=== PATIENT | male | born 1975 | race Caucasian/White ===

== ENCOUNTER 2025-01-31 22:10 | Emergency (ER) | payer MEDICAID ==
[~2025-01-31] VITALS: Ht 160 cm; Wt 84.7 kg
[2025-02-01] MEDS ORDERED: SULF1TAB49 PO (02:41)
[2025-02-01] MEDS ORDERED: CEPH-585 PO (02:41)
--- NOTE | 2025-02-01 02:43 | Physician Documentation ---
History of Present Illness ~ Chief Complaint: Finger pain Stated Complaint: "FINGER NAIL PAIN" Time Seen by MD: 02:36 Primary Medical Doctor: NONE Source: patient Mode of Arrival: POV Exam Limitations: no limitations HPI Patient who reports having problems with his nails on his fingers for several years. Sometimes they are painful and they have a lot of bumps and Ridges on them. But over the past week or so some of them seem a little infected. His left ring finger has some pus coming out of the end of it it has been draining today. Mild tenderness. He states that he picks at his fingernails a lot. Tetanus within 5 years: No (UNK) Medication Reconciliation Allergies: Coded Allergies: acetaminophen (Verified Allergy, Mild, 01/31/25) hydromorphone (Verified Allergy, Unknown, Pt states he passed out, 01/31/25) ibuprofen (Verified Allergy, Unknown, 01/31/25) Scheduled Cephalexin*Monohydrate* (Keflex*), 1 CAP PO BID Sulfamethoxazole/Trimethoprim (Bactrim Ds Tablet), 1 TAB PO Q12H Past Medical History Past Medical History: No Pertinent History, Asthma, Cellulitis, Depression Past Surgical History: orthopedic surgeries Patient History: Patient reports no known family medical history. Alcohol Use: Rarely Drug Use: marijuana Lives with: Other Lives In: Home Occupation: unemployed Review of Systems All Other Systems at this time: Reviewed and Negative Physical Exam Vital Signs: Temperature: 97.8, Source: Temporal, Heart Rate: 89, Respiratory Rate: 18, BP: 137/88, Pulse Oximetry: 98, Weight: 84.700 Physical Exam General: Alert and oriented x4, well-appearing, well-nourished, no acute distress HEENT: Normocephalic, atraumatic, no visible or palpable masses or depression, extraocular movements intact, Heart: Regular rate Lungs: Clear , normal work of breathing Extremities: Full range of motion, no acute deformity, fingers: Multiple nail beds with Ridges and possible fungal infection, left ring finger nail bed with erythema around the nail and mild pus draining on the medial lateral side of the nailbed Musculoskeletal: Normal gait, normal tone Neurologic: Cranial nerves 2-12 are intact, Psychiatric: Alert and oriented x4, judgment and insight normal, normal mood and affect Skin: Good turgor, Progress Results/Orders Results/Orders Completed Orders - ESTHER SCHWARTZ MD Cephalexin Capsule (Keflex Capsule) (02/01/25 02:40) Sulfamethox/Trimetho. Ds Tab (Septra Ds (02/01/25 02:40) Medications Received in ER Medications (Trade) Dose Ordered Sig/Charli Route PRN Reason Start Time Stop Time Status Last Admin Dose Admin (Keflex capsule) 500 mg ONCE ONCE PO 02/01/25 02:40 02/01/25 02:41 DC 02/01/25 02:49 500 MG (Septra DS tab) 1 tab ONCE ONCE PO 02/01/25 02:40 02/01/25 02:41 DC 02/01/25 02:49 1 TAB Vital Signs 01/31/25 02/01/25 22:21 02:51 Temp 97.8 98.1 Pulse 89 85 Resp 18 16 B/P (MAP) 137/88 136/84 Pulse Ox 98 98 Departure Disposition: 01 HOME / SELF CARE / HOMELESS Impression: Primary Impression: Cellulitis of finger, left Additional Impression: Paronychia of finger Additional Impression Text Patient with a mild paronychia that is open and draining on the left index finger. Mild cellulitis versus fungal infection of other nails. Placing the patient on Bactrim and Keflex. Discharging in good condition to follow up with his PCP. Discussed after the or writing infection is cleared he may talk to his doctor about a possible fungal infection in the nail beds. He is to return here if new or worsening symptoms prior to follow-up. Condition: Stable Discharge Instructions: Paronychia Additional Instructions: You need to soak the left ring finger several times a day. Follow up with your PCP if not improving. Complete both 7 days of Bactrim and 7 days of Keflex. Return to the ER if new or worsening symptoms prior to follow-up. Referrals: NO PRIMARY CARE PROVIDER (PCP) Prescriptions Sulfamethoxazole/Trimethoprim (Bactrim Ds Tablet) 800 Mg-160 Mg Tablet 1 TAB PO Q12H for 7 Days, #14 TAB Prov: ESTHER SCHWARTZ MD 02/01/25 Cephalexin*Monohydrate* (Keflex*) 500 Mg Capsule 1 CAP PO BID, #14 CAP Prov: ESTHER SCHWARTZ MD 02/01/25 Education Educated: Patient Educated regarding: diagnosis, treatment, prognosis, need for follow up Signature Scribe Signature: No [email or web address] Attestation: No [email or web address] Espinoza MD Feb 01, 2025 02:43
[2025-02-01] MEDS: sulfamethoxazole/trimethoprim DS (800/160mg) tablet PO ONE (02:49)
[2025-02-01] MEDS: cephalexin 500mg capsule PO ONE (02:49)
[2025-02-01 02:51] VITALS: BP 136/84; PULSE 85; RESP 16; TEMP 98.1; O2SAT 98
== END 2025-02-01 02:53 | disposition home or self-care (01) ==
LOC: ER 22:11
DX: L03.012 Cellulitis of left finger (principal); F12.90 Cannabis use, unspecified, uncomplicated; Z88.5 Allergy status to narcotic agent; Z88.6 Allergy status to analgesic agent; Z79.899 Other long term (current) drug therapy; Z56.0 Unemployment, unspecified
CPT/HCPCS: 99283